=== PATIENT | male | born 1990 | race Caucasian/White ===

== ENCOUNTER 2019-06-01 11:49 | Inpatient (IN) | payer OTHER ==
[2019-06-01 12:26] VITALS: BMI 24.5
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
[2019-06-01] MEDS ORDERED: LOPERAMIDE HCL 2 MG CAPSULE PO PRN (14:08)
[2019-06-01] MEDS ORDERED: NICOTINE POLACRILEX 2 MG GUM BC PRN (14:08)
[2019-06-01] MEDS ORDERED: IBUPROFEN 400 MG TABLET (FP) PO PRN (14:08)
[2019-06-01] MEDS ORDERED: ACETAMINOPHEN 325 MG TABLET (FP) PO PRN (14:08)
[2019-06-01] MEDS ORDERED: hydrOXYzine PAMOATE 50 MG CAPSULE (FP) PO PRN (14:08)
[2019-06-01] MEDS ORDERED: MAGNESIUM CITRATE 300 ML BOTTLE PO PRN (14:08)
[2019-06-01] MEDS ORDERED: MENTHOL/PHENOL 1 EACH UD MM PRN (14:08)
[2019-06-01] MEDS ORDERED: guaiFENesin 200 MG/10 ML 10 ML UNIT-DOSE CUPS PO PRN (14:08)
[2019-06-01] MEDS ORDERED: P-EPHED 60MG/TRIPROLIDI 2.5MG TABLET PO PRN (14:08)
[2019-06-01] MEDS ORDERED: MAG HYDROX/AL HYDROX/SIMETH 30 ML UNIT-DOSE CUP PO PRN (14:08)
[2019-06-01] MEDS ORDERED: MAGNESIUM HYDROX 2400MG/30ML ORAL SUSPENSION 30 ML CUP PO PRN (14:08)
[2019-06-01 16:38] LABS: HEMATOCRIT 45.5 % (35.4-49); MCH 29.2 pg (25.7-33.7); MEAN CELL VOLUME 88.6 fl (80-96); MEAN PLT VOLUME 9.5 fl (7.5-11.1); PLATELET COUNT 146 K/MM3 (134-434); RBC 5.13 M/mm3 (4.00-5.60); RDW 13.2 % (11.9-15.9); WHITE BLOOD COUNT 7.3 K/mm3 (4.0-10.0)
[2019-06-01 16:44] LABS: ALBUMIN 3.8 g/dl (3.4-5.0); BLOOD UREA NITROGEN 16.9 mg/dL (7-18); CALCIUM 9.1 mg/dL (8.5-10.1); CREATININE 1.2 mg/dL (0.55-1.3); POTASSIUM 4.6 mmol/L (3.5-5.1)
[2019-06-01] MEDS ORDERED: MELATONIN 5 MG TABLETS PO PRN (22:00)
[2019-06-01] MEDS: BACITRACIN 15 GM TUBE TOPICAL OINTMENT TP SCH (22:08)
[2019-06-01] MEDS: GABAPENTIN 100 MG CAPSULE (FP) PO SCH (22:08)
[2019-06-01] MEDS: THIAMINE HCL 100 MG TABLET (FP) PO SCH (22:08)
[2019-06-02] MEDS: GABAPENTIN 100 MG CAPSULE (FP) PO SCH ×3 (07:22→21:25)
[2019-06-02] MEDS: PRENATAL VITAMINS W/ FOLIC ACID TABLET (FP) PO SCH (10:36)
[2019-06-02] MEDS: NICOTINE 14 MG/24 HOURS TOPICAL PATCH TD SCH (10:36)
[2019-06-02] MEDS: BACITRACIN 15 GM TUBE TOPICAL OINTMENT TP SCH ×2 (10:37→21:26)
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
[2019-06-02] MEDS: risperiDONE 1 MG TABLET (FP) PO SCH ×2 (12:42→21:25)
[2019-06-02] MEDS: DIVALPROEX NA *ER* EXTEND REL 500 MG TABLET.SA (FP) PO SCH ×2 (12:42→21:25)
--- NOTE | 2019-06-02 14:16 | EKG ---
Test Reason : Blood Pressure : / mmHG Vent. Rate : 067 BPM Atrial Rate : 067 BPM P-R Int : 120 ms QRS Dur : 088 ms QT Int : 394 ms P-R-T Axes : 037 036 039 degrees QTc Int : 416 ms NORMAL SINUS RHYTHM NORMAL ECG NO PREVIOUS ECGS AVAILABLE Confirmed by CARMEN STEVENS MD ([id number]) on 06/02/2019 2:15:55 PM Referred By: Confirmed By:CARMEN STEVENS MD
[2019-06-02] MEDS: traZODone HCL 100 MG TABLET (FP) PO SCH (21:25)
[2019-06-02] MEDS: THIAMINE HCL 100 MG TABLET (FP) PO SCH (21:25)
[2019-06-02] MEDS ORDERED: traZODone HCL 50 MG TABLET (FP) PO SCH (22:00)
[2019-06-03] MEDS: GABAPENTIN 100 MG CAPSULE (FP) PO SCH ×3 (07:00→20:59)
[2019-06-03] MEDS: NICOTINE 14 MG/24 HOURS TOPICAL PATCH TD SCH (10:29)
[2019-06-03] MEDS: PRENATAL VITAMINS W/ FOLIC ACID TABLET (FP) PO SCH (10:29)
[2019-06-03] MEDS: DIVALPROEX NA *ER* EXTEND REL 500 MG TABLET.SA (FP) PO SCH ×2 (10:29→20:59)
[2019-06-03] MEDS: risperiDONE 1 MG TABLET (FP) PO SCH ×2 (10:30→20:59)
[2019-06-03] MEDS: BACITRACIN 15 GM TUBE TOPICAL OINTMENT TP SCH ×2 (10:31→21:01)
[2019-06-03] MEDS: traZODone HCL 100 MG TABLET (FP) PO SCH (20:59)
[2019-06-03] MEDS: THIAMINE HCL 100 MG TABLET (FP) PO SCH (20:59)
[2019-06-04] MEDS: GABAPENTIN 100 MG CAPSULE (FP) PO SCH ×3 (08:15→21:14)
[2019-06-04] MEDS: risperiDONE 1 MG TABLET (FP) PO SCH ×2 (10:36→21:14)
[2019-06-04] MEDS: BACITRACIN 15 GM TUBE TOPICAL OINTMENT TP SCH ×2 (10:36→21:16)
[2019-06-04] MEDS: PRENATAL VITAMINS W/ FOLIC ACID TABLET (FP) PO SCH (10:36)
[2019-06-04] MEDS: NICOTINE 14 MG/24 HOURS TOPICAL PATCH TD SCH (10:36)
[2019-06-04] MEDS: DIVALPROEX NA *ER* EXTEND REL 500 MG TABLET.SA (FP) PO SCH ×2 (13:41→21:14)
[2019-06-04] MEDS: traZODone HCL 100 MG TABLET (FP) PO SCH (21:15)
[2019-06-04] MEDS: THIAMINE HCL 100 MG TABLET (FP) PO SCH (21:15)
[2019-06-05] MEDS: GABAPENTIN 100 MG CAPSULE (FP) PO SCH ×3 (07:32→21:45)
[2019-06-05] MEDS: PRENATAL VITAMINS W/ FOLIC ACID TABLET (FP) PO SCH (10:30)
[2019-06-05] MEDS: NICOTINE 14 MG/24 HOURS TOPICAL PATCH TD SCH (10:30)
[2019-06-05] MEDS: DIVALPROEX NA *ER* EXTEND REL 500 MG TABLET.SA (FP) PO SCH ×2 (10:30→21:45)
[2019-06-05] MEDS: risperiDONE 1 MG TABLET (FP) PO SCH ×2 (10:30→21:45)
[2019-06-05] MEDS: BACITRACIN 15 GM TUBE TOPICAL OINTMENT TP SCH ×2 (10:30→21:46)
[2019-06-05] MEDS: THIAMINE HCL 100 MG TABLET (FP) PO SCH (21:45)
[2019-06-05] MEDS: traZODone HCL 100 MG TABLET (FP) PO SCH (21:45)
[2019-06-06] MEDS: GABAPENTIN 100 MG CAPSULE (FP) PO SCH ×3 (06:35→21:34)
[2019-06-06 07:21] VITALS: BP 123/73; PULSE 66; TEMP 98.1
[2019-06-06] MEDS: NICOTINE 14 MG/24 HOURS TOPICAL PATCH TD SCH (10:15)
[2019-06-06] MEDS: BACITRACIN 15 GM TUBE TOPICAL OINTMENT TP SCH ×2 (10:15→21:36)
[2019-06-06] MEDS: PRENATAL VITAMINS W/ FOLIC ACID TABLET (FP) PO SCH (10:15)
[2019-06-06] MEDS: risperiDONE 1 MG TABLET (FP) PO SCH ×2 (10:15→21:34)
[2019-06-06] MEDS: DIVALPROEX NA *ER* EXTEND REL 500 MG TABLET.SA (FP) PO SCH ×2 (10:15→21:34)
[2019-06-06] MEDS: traZODone HCL 100 MG TABLET (FP) PO SCH (21:34)
[2019-06-06] MEDS: THIAMINE HCL 100 MG TABLET (FP) PO SCH (21:34)
[2019-06-07] MEDS: GABAPENTIN 100 MG CAPSULE (FP) PO SCH ×2 (06:42→14:16)
[2019-06-07] MEDS: risperiDONE 1 MG TABLET (FP) PO SCH (10:10)
[2019-06-07] MEDS: NICOTINE 14 MG/24 HOURS TOPICAL PATCH TD SCH (10:10)
[2019-06-07] MEDS: DIVALPROEX NA *ER* EXTEND REL 500 MG TABLET.SA (FP) PO SCH (10:10)
[2019-06-07] MEDS: PRENATAL VITAMINS W/ FOLIC ACID TABLET (FP) PO SCH (10:10)
--- NOTE | 2019-06-07 15:26 | PN ---
[facility] Progress Note (SOAP) Subjective: Pt requests to leave treatment today stating he has court date tomorrow at 9: 00 A.M. Pt states he spoke to his hall clerk and has to go else will have warrant on him so does not want to continue treatment here. Pt is a 28 y/o male who was admitted to rehab on 06/01/19. Pt met with counselling supervisor fur floor worker, Kym Gray and CD referral information given to pt. Pt is homeless and was referred to [facility]. Pt denies s/h/i Objective: 06/07/19 15:27 General:Alert o x 3, well nourished, nad. Heent:Normocephalic, eomi, perrla Neck:supple,From Heart:s1 s2, rrr, no mm Lungs:cta,tip. Abdomen:soft, +bs,nt,nd Extremities:No e/c/c, From Vital Signs (72 hours) 06/05/19 06/05/19 06/05/19 00:30 03:30 06:30 Temperature Pulse Rate Respiratory 18 18 18 Rate Blood Pressure 06/05/19 06/05/19 06/06/19 06:58 09:26 00:30 Temperature 98.2 F Pulse Rate 70 Respiratory 18 18 18 Rate Blood Pressure 137/72 06/06/19 06/06/19 06/07/19 03:30 07:20 03:30 Temperature 98.1 F Pulse Rate 66 Respiratory 18 16 18 Rate Blood Pressure 123/73 Laboratory Tests 06/01/19 06/01/19 06/01/19 14:15 14:15 14:15 WBC 7.3 RBC 5.13 Hgb 15.0 Hct 45.5 MCV 88.6 MCH 29.2 MCHC 33.0 RDW 13.2 Plt Count 146 MPV 9.5 Sodium 140 Potassium 4.6 Chloride 104 Carbon Dioxide 32 Anion Gap 4 L BUN 16.9 Creatinine 1.2 Est GFR (CKD-EPI)AfAm 94.14 Est GFR (CKD-EPI)NonAf 81.23 Random Glucose 81 Calcium 9.1 Total Bilirubin 1.0 AST 68 H ALT 40 Alkaline Phosphatase 60 Total Protein 7.0 Albumin 3.8 Valproic Acid RPR Titer Nonreactive TB (QFT) Incubation TB Test (QFT) Nil TB Test (QFT) Mitogen TB Test (QFT) Antigen TB Test (QFT) TB Positive Criteria 06/01/19 06/04/19 14:15 05:40 WBC RBC Hgb Hct MCV MCH MCHC RDW Plt Count MPV Sodium Potassium Chloride Carbon Dioxide Anion Gap BUN Creatinine Est GFR (CKD-EPI)AfAm Est GFR (CKD-EPI)NonAf Random Glucose Calcium Total Bilirubin AST ALT Alkaline Phosphatase Total Protein Albumin Valproic Acid < 3.0 L RPR Titer TB (QFT) Incubation TB Test (QFT) Nil 0.02 TB Test (QFT) Mitogen >10.00 TB Test (QFT) Antigen 0.02 TB Test (QFT) Negative TB Positive Criteria Home Medications Medication Instructions Recorded Risperidone [Risperdal] 3 mg PO BID 06/01/19 Risperidone [Risperdal] 1 mg PO BID 06/02/19 traZODone HCL [Trazodone HCl] 100 06/02/19 traZODone HCL [Trazodone HCl] 100 mg PO HS 06/02/19 Assessment: 06/07/19 15:28 Nad Medically stable [facility] Inpatient Services Medical - Diagnosis (1) Cocaine dependence Qualifiers: Substance use status: uncomplicated Qualified Code(s): F14.20 - Cocaine dependence, uncomplicated Current Visit: Yes Status: Chronic (2) Alcohol dependence Qualifiers: Substance use status: uncomplicated Qualified Code(s): F10.20 - Alcohol dependence, uncomplicated Current Visit: Yes Status: Chronic (3) Amphetamine abuse Current Visit: Yes Status: Chronic (4) Nicotine dependence Qualifiers: Nicotine product type: cigarettes Substance use status: uncomplicated Qualified Code(s): F17.210 - Nicotine dependence, cigarettes, uncomplicated Current Visit: Yes Status: Chronic (5) Psychiatric disorder Current Visit: Yes Status: Chronic Initialized on 06/07/19 15:26 - END OF NOTE Plan: Pt signed out AMA Follow up with CD aftercare recommendations D/W patient to follow up with primary care, Dr. Jim Diaz at [facility], within 1-2 weeks after discharge.
[2019-06-07] MEDS: BACITRACIN 15 GM TUBE TOPICAL OINTMENT TP SCH (15:38)
== END 2019-06-07 16:05 | disposition left against medical advice (07) | DRG 770 ==
LOC: YASAS 11:49 → Y5N 14:44 → Y6N 14:44 → UNDOADMIN 14:44 → Y5N 15:27 → Y6N 15:27
PROVIDERS: ADMIT Neuromusculoskeletal Medicine & OMM; ATTEND Neuromusculoskeletal Medicine & OMM
PROC: HZ42ZZZ Group Counseling for Substance Abuse Treatment, Cognitive-Behavioral (ICD-10-PCS; principal; 2019-06-01)
DX: F10.20 Alcohol dependence, uncomplicated (principal); F14.20 Cocaine dependence, uncomplicated; F15.10 Other stimulant abuse, uncomplicated; F17.210 Nicotine dependence, cigarettes, uncomplicated; F99 Mental disorder, not otherwise specified; F31.9 Bipolar disorder, unspecified; F25.9 Schizoaffective disorder, unspecified
CPT/HCPCS: 36415; 80053; 80164; 85027; 86480; 86593; 93005; 93010; J2794